=== PATIENT | male | born 1985 | race Caucasian/White ===

== ENCOUNTER 2021-09-13 13:12 | Emergency (ER) | payer OTHER ==
[~2021-09-13] VITALS: Ht 188 cm; Wt 124.1 kg
[2021-09-13 13:12] VITALS: BP 126/71
[2021-09-13] MEDS ORDERED: ROSU20TA5 PO (13:19)
[2021-09-13] MEDS ORDERED: LISI20TA37 PO (13:19)
[2021-09-13] MEDS ORDERED: METF10004 PO (13:19)
[2021-09-13] MEDS ORDERED: ACETAMINOPHEN 500 MG TAB PO ONE (14:45)
[2021-09-13] MEDS ORDERED: IBUPROFEN 600MG TAB PO ONE (14:45)
== END 2021-09-13 16:20 | disposition home or self-care (01) ==
LOC: M ED 13:12
DX: S46.201A Unspecified injury of muscle, fascia and tendon of other parts of biceps, right arm, initial encounter (principal); X50.0XXA Overexertion from strenuous movement or load, initial encounter; I10 Essential (primary) hypertension; Z79.811 Long term (current) use of aromatase inhibitors; Z79.84 Long term (current) use of oral hypoglycemic drugs; Y92.9 Unspecified place or not applicable; Y93.9 Activity, unspecified; Y99.9 Unspecified external cause status